=== PATIENT | female | born 1970 | race Caucasian/White ===

== ENCOUNTER → 2020-06-17 | Outpatient (CLI) | payer OTHER ==
[~2020-06-17] MED LIST: VIT500LI PO; [UNRECOGNIZED DRUG - OTHER] NAS
[2020-06-17 10:49] LABS: BASOPHILS % (AUTO) 1 % (0-1); EOSINOPHILS % (AUTO) 1 % (1-7); LYMPHOCYTES % (AUTO) 43 % (22-44); MD NO; MEAN CORPUSCULAR HEMOGLOBIN 29.4 pg (27.0-34.8); MEAN CORPUSCULAR HGB CONC 32.9 g/dL (32.4-35.8); MEAN PLATELET VOLUME 7.7 fL (7.4-10.4); MONOCYTES % (AUTO) 6 % (2-9); NEUTROPHILS % (AUTO) 48 % (42-75); PLATELET COUNT 307 x10^3/uL (130-400); RED BLOOD COUNT 4.71 x10^6/uL (3.82-5.3)
[2020-06-17 11:00] LABS: ALANINE AMINOTRANSFERASE 16 U/L (12-78); ALBUMIN 3.7 g/dL (3.4-5.0); ANION GAP 5 mmol/L (5-15); CALCIUM 8.8 mg/dL (8.5-10.1); CHLORIDE 111 mmol/L (98-107); CREATININE 0.81 mg/dL (0.55-1.02)
[2020-06-17 11:02] LABS: ALKALINE PHOSPHATASE 62 U/L (45-117); BILIRUBIN,TOTAL 0.7 mg/dL (0.2-1.0); TOTAL PROTEIN 7.8 g/dL (6.4-8.2)
== END | disposition home or self-care (01) ==
LOC: STAR 09:45
PROVIDERS: ATTEND Obstetrics & Gynecology
DX: Z01.812 Encounter for preprocedural laboratory examination (principal); Z20.828 Contact with and (suspected) exposure to other viral communicable diseases; R94.31 Abnormal electrocardiogram [ECG] [EKG]
CPT/HCPCS: 36415; 80053; 85025; 87635; 93005

== ENCOUNTER 2020-06-21 08:06 | Inpatient (IN) | payer OTHER ==
[~2020-06-21] VITALS: Ht 152.4 cm; Wt 76.0 kg
[~2020-06-21 08:06] MED LIST changes: +ACETAMINOPHEN 325 MG TABLET PO PRN; +EPHEDRINE 50 MG/ML, 1ML IVPush PRN; +HALOPERIDOL 5 MG/ML IV PRN; +HYDROmorphone 1 MG/ML, 1ML INJ IVPush PRN; +KETOROLAC 30 MG/1 ML IVPush PRN; +LABETALOL 5MG/ML, 20ML IV PRN; +LORazepam 2 MG/ML, 1ML IVPush PRN; +MEPERIDINE/PF 25MG/0.5ML IVPush PRN; +METHOCARBAMOL 1,000 MG in DEXTROSE 5% 100 ML IV PRN; +OXYcodone 5 MG/5 ML ORAL.SOL UDC PO PRN; +PROMETHAZINE 12.5 MG SUPP PR PRN; +hydrALAzine 20 MG/ML, 1ML IV PRN
[2020-06-21] MEDS ORDERED: CHLORHEXIDINE 15 ML UDC MM STA (08:25)
[2020-06-21] MEDS ORDERED: CHLORHEXIDINE 15 ML UDC ONE (08:29)
[2020-06-21] MEDS ORDERED: LACTATED RINGERS 1,000 ML IV SCH (08:30)
[2020-06-21] MEDS ORDERED: FENTANYL PF 250 MCG/5ML ONE (08:42)
[2020-06-21] MEDS ORDERED: MIDAZOLAM 1 MG/ML, 2ML ONE (08:45)
[2020-06-21 08:53] LABS: HCG UR SG 1.012 (1.003-1.030)
[2020-06-21] MEDS ORDERED: FENTANYL PF 100 MCG/2ML ONE ×3 (10:29→11:33)
[2020-06-21] MEDS ORDERED: OXYcodone 5 MG/5 ML ORAL.SOL UDC ONE (11:33)
[2020-06-21] MEDS: FENTANYL PF 100 MCG/2ML IV PRN ×2 (11:35→11:44)
[2020-06-21] MEDS ORDERED: ONDANSETRON 2MG/ML, 2ML IV PRN (14:30)
[2020-06-21] MEDS ORDERED: INSTRUCTION SEE COMMENTS XX PRN (14:30)
[2020-06-21] MEDS: SIMETHICONE 80 MG CHEW TAB PO SCH ×2 (14:37→20:35)
[2020-06-21] MEDS: IBUPROFEN 600 MG TABLET PO SCH ×2 (14:37→20:36)
[2020-06-21] MEDS: HYDROmorphone 2 MG/ML, 1ML IV PRN ×2 (14:37→22:35)
[2020-06-21] MEDS: LACTATED RINGERS 1,000 ML IV SCH ×2 (14:43→20:36)
[2020-06-21 14:44] VITALS: BP 112/60
[2020-06-21] MEDS ORDERED: SUCCINYLCHOLINE 20 MG/ML, 10ML ONE (16:27)
[2020-06-21] MEDS ORDERED: PROPOFOL 10 MG/ML, 20ML ONE (16:27)
[2020-06-21] MEDS ORDERED: ROCURONIUM 10MG/ML,5ML ONE (16:27)
[2020-06-21] MEDS ORDERED: DEXAMETHASONE 4 MG/ML, 1ML ONE (16:27)
[2020-06-21] MEDS ORDERED: GLYCOPYRROLATE 0.2MG/1ML, 5ML ONE (16:27)
[2020-06-21] MEDS ORDERED: NEOSTIGMINE 1 MG/ML, 10ML ONE (16:27)
[2020-06-21] MEDS ORDERED: ONDANSETRON 2MG/ML, 2ML ONE (16:27)
[2020-06-21] MEDS ORDERED: PROPOFOL 10 MG/ML, 50ML ONE (16:27)
[2020-06-21] MEDS ORDERED: KETOROLAC 30 MG/1 ML ONE (16:27)
[2020-06-21] MEDS ORDERED: CEFAZOLIN 1,000 MG ONE (16:27)
[2020-06-21 20:15] VITALS: BP 108/58
[2020-06-21] MEDS: DOCUSATE 100 MG CAPSULE PO SCH (20:36)
[2020-06-21] MEDS: SODIUM CHLORIDE FLUSH 10ML SYR IVF SCH (20:36)
[2020-06-21] MEDS: OXYcodone/APAP 5/325MG TABLET PO PRN (20:36)
[2020-06-21] MEDS ORDERED: ZOLPIDEM 5MG TABLET PO PRN (21:00)
[2020-06-22 00:47] VITALS: BP 109/61
[2020-06-22] MEDS: OXYcodone/APAP 5/325MG TABLET PO PRN ×3 (04:18→13:27)
[2020-06-22 05:03] VITALS: BP 101/62
[2020-06-22] MEDS: LACTATED RINGERS 1,000 ML IV SCH (05:54)
[2020-06-22] MEDS: IBUPROFEN 600 MG TABLET PO SCH ×2 (05:54→11:15)
[2020-06-22 06:55] VITALS: BP 94/53
[2020-06-22] MEDS: DOCUSATE 100 MG CAPSULE PO SCH (09:12)
[2020-06-22] MEDS: SIMETHICONE 80 MG CHEW TAB PO SCH (09:12)
[2020-06-22] MEDS: SODIUM CHLORIDE FLUSH 10ML SYR IVF SCH (09:14)
[2020-06-22] MEDS ORDERED: OXYC-302 PO (09:46)
[2020-06-22] MEDS ORDERED: IBUP-1223 PO (09:47)
[2020-06-22] MEDS ORDERED: DOCU-131 PO (09:48)
== END 2020-06-22 13:40 | disposition home or self-care (01) | DRG 743 ==
LOC: ORIP 08:06 → 4NE 13:09
PROVIDERS: ADMIT Obstetrics & Gynecology; ATTEND Obstetrics & Gynecology
PROC: 0UT70ZZ Resection of Bilateral Fallopian Tubes, Open Approach (ICD-10-PCS; 2020-06-21)
PROC: 0UT90ZZ Resection of Uterus, Open Approach (ICD-10-PCS; principal; 2020-06-21 10:00)
DX: D25.9 Leiomyoma of uterus, unspecified (principal); N73.6 Female pelvic peritoneal adhesions (postinfective); Z98.891 History of uterine scar from previous surgery
CPT/HCPCS: 36415; 81025; 85014; 85018; 86850; 86900; 88307; G0378; J0690; J1100; J1170; J1885; J2250; J2405; J2704; J2710; J3010; J0330; J2800; J7120